=== PATIENT | male | born 1940 | race African-American/Black ===

== ENCOUNTER 2024-08-07 12:09 | Inpatient (IN) | payer OTHER, MEDICARE ==
[~2024-08-07] VITALS: Ht 172.7 cm; Wt 80.5 kg
[~2024-08-07 12:09] MED LIST: ASPI-1497 PO; ATOR40TA70 PO; BICA50TA7 PO; DILT120T13 PO; HYDR25TA PO; METF-1149 PO; TERA2CAP4 PO
[2024-08-07 16:28] LABS: BASOPHILS % 0.5 % (0.0-2.0); EOSINOPHILS % 1.4 % (0.0-5.0); HEMATOCRIT. 35.2 % (42.0-52.0); HEMOGLOBIN. 11.1 g/dL (14.0-18.0); LYMPHOCYTES % 19.6 % (20.0-50.0); MEAN CORPUSCULAR HEMOGLOBIN 26.7 pg (28.0-32.0); MEAN CORPUSCULAR HGB CONC 31.6 g/dL (31.0-37.0); MEAN CORPUSCULAR VOLUME 84.6 fL (80.0-94.0); MEAN PLATELET VOLUME 7.9 fl (7.4-10.4); NEUTROPHILS % 66.5 % (40.0-76.0); PLATELET 329 x1000/uL (130-400); RED BLOOD CELL COUNT 4.16 mill/uL (4.7-6.1); RED CELL DISTRIBUTION WIDTH 14.9 % (11.6-14.6); WHITE BLOOD COUNT 7.8 x1000/uL (4.5-11.0)
[2024-08-07 16:38] LABS: CHLORIDE 113 mEq/L (98-107); POTASSIUM 3.3 mEq/L (3.5-5.1); SODIUM 149 mEq/L (136-145)
[2024-08-07 16:39] LABS: CALCIUM 9.4 mg/dL (8.7-10.4); CARBON DIOXIDE 26 mEq/L (21-32)
[2024-08-07 16:41] LABS: PROTHROMBIN TIME 11.4 sec (9.6-11.0)
[2024-08-07 16:44] LABS: GLUCOSE 87 mg/dL (70-105); UREA NITROGEN BLOOD 13 mg/dL (9-23)
[2024-08-07 16:45] LABS: TROPONIN I HIGH SENSITIVITY 18 ng/L (3.0-53)
[2024-08-07] MEDS: ENOXAPARIN 40MG/0.4ML SYR SUBCUT SCH (20:30)
[2024-08-07] MEDS: DEXT 5%/0.45% NACL 1000ML 1,000 ML IV SCH (20:30)
[2024-08-07] MEDS ORDERED: HYDROCODONE/ACETAMINOPHEN 5/325MG TABLET PO PRN (20:30)
[2024-08-07] MEDS ORDERED: ACETAMINOPHEN 325MG TABLET PO PRN (20:30)
[2024-08-07] MEDS ORDERED: ONDANSETRON HCL 4MG/2ML INJ IV PRN (20:30)
[2024-08-07] MEDS ORDERED: MAGNESIUM/ALUMINUM HYDROXIDE/SIMETHICONE 30ML UDC PO PRN (20:30)
[2024-08-07] MEDS ORDERED: IPRATROPIUM/ALBUTEROL 0.5-3(2.5)MG/3ML NEB NEB PRN (20:30)
[2024-08-07 20:43] LABS: TROPONIN I HIGH SENSITIVITY 18 ng/L (3.0-53)
[2024-08-08] MEDS: PANTOPRAZOLE SODIUM 40 MG/VIAL IV SCH (09:31)
[2024-08-08 12:50] VITALS: BP 180/79; PULSE 56; RESP 18; TEMP 36.8628
[2024-08-08] MEDS: CLONIDINE 0.1MG TABLET PO PRN (13:15)
[2024-08-08 16:00] VITALS: BP 150/81; PULSE 59; RESP 18; TEMP 36.9474; O2SAT 98
[2024-08-08 16:55] LABS: BASOPHILS % 0.5 % (0.0-2.0); EOSINOPHILS % 2.4 % (0.0-5.0); HEMATOCRIT. 33.2 % (42.0-52.0); HEMOGLOBIN. 10.7 g/dL (14.0-18.0); LYMPHOCYTES % 18.2 % (20.0-50.0); MEAN CORPUSCULAR HEMOGLOBIN 26.6 pg (28.0-32.0); MEAN CORPUSCULAR HGB CONC 32.1 g/dL (31.0-37.0); MEAN PLATELET VOLUME 8.4 fl (7.4-10.4); MONOCYTES % 11.8 % (2.0-8.0); NEUTROPHILS % 67.1 % (40.0-76.0); PLATELET 310 x1000/uL (130-400); RED CELL DISTRIBUTION WIDTH 14.5 % (11.6-14.6); WHITE BLOOD COUNT 6.6 x1000/uL (4.5-11.0)
[2024-08-08 17:08] LABS: CHLORIDE 115 mEq/L (98-107); CREATINE KINASE MB FRACTION 1.7 ng/mL (0.5-3.6); POTASSIUM 3.7 mEq/L (3.5-5.1); SODIUM 146 mEq/L (136-145)
[2024-08-08 17:09] LABS: CALCIUM 9.1 mg/dL (8.7-10.4); CARBON DIOXIDE 24 mEq/L (21-32)
[2024-08-08 17:14] LABS: CREATININE 0.8 mg/dL (0.6-1.3); GLUCOSE 106 mg/dL (70-105); UREA NITROGEN BLOOD 12 mg/dL (9-23)
[2024-08-08 17:16] LABS: AMMONIA 40 uMol/L (<32)
[2024-08-08 17:19] LABS: THYROID STIMULATING HORMONE 0.76 uIU/mL (0.55-4.78); VITAMIN B12 SERUM 232 pg/mL (211-911)
[2024-08-08 20:00] VITALS: BP 128/58; PULSE 65; RESP 20; TEMP 37.503; O2SAT 98
[2024-08-09] VITALS: BP 130/63; PULSE 68; RESP 20; TEMP 37.16964; O2SAT 98
[2024-08-09] MEDS: ASPIRIN 81MG EC TABLET PO SCH (00:06)
[2024-08-09 04:00] VITALS: BP 159/61; PULSE 49; RESP 18; TEMP 36.72516; O2SAT 98
[2024-08-09 06:39] LABS: CARBON DIOXIDE 26 mEq/L (21-32); CHLORIDE 112 mEq/L (98-107); POTASSIUM 4.3 mEq/L (3.5-5.1); SODIUM 146 mEq/L (136-145)
[2024-08-09 06:40] LABS: CALCIUM 9.6 mg/dL (8.7-10.4)
[2024-08-09 06:45] LABS: GLUCOSE 138 mg/dL (70-105); TRIGLYCERIDE 45 mg/dL (0-150); UREA NITROGEN BLOOD 14 mg/dL (9-23)
[2024-08-09 06:46] LABS: CHOLESTEROL 101 mg/dL (<200); LDL CHOLESTEROL 47 mg/dL (5-100)
[2024-08-09 06:47] LABS: HDL CHOLESTEROL 34 mg/dL (>55)
[2024-08-09 06:51] LABS: BASOPHILS % 0.4 % (0.0-2.0); EOSINOPHILS % 1.8 % (0.0-5.0); HEMATOCRIT. 36.7 % (42.0-52.0); HEMOGLOBIN. 11.7 g/dL (14.0-18.0); LYMPHOCYTES % 15.8 % (20.0-50.0); MEAN CORPUSCULAR HEMOGLOBIN 27.2 pg (28.0-32.0); MEAN CORPUSCULAR VOLUME 84.9 fL (80.0-94.0); MEAN PLATELET VOLUME 8.2 fl (7.4-10.4); MONOCYTES % 9.9 % (2.0-8.0); NEUTROPHILS % 72.1 % (40.0-76.0); PLATELET 325 x1000/uL (130-400); RED BLOOD CELL COUNT 4.32 mill/uL (4.7-6.1); WHITE BLOOD COUNT 6.6 x1000/uL (4.5-11.0)
[2024-08-09 08:00] VITALS: BP 142/73; PULSE 61; RESP 18; TEMP 36.6696; O2SAT 98
[2024-08-09] MEDS: BICALUTAMIDE 50 MG TABLET PO SCH (09:00)
[2024-08-09] MEDS: DILTIAZEM HCL 120MG TABLET PO SCH (09:00)
[2024-08-09 12:00] VITALS: BP 138/74; PULSE 64; RESP 18; TEMP 36.89184; O2SAT 97
[2024-08-09 16:00] VITALS: BP 148/70; PULSE 60; RESP 18; TEMP 36.78072; O2SAT 98
[2024-08-09] MEDS ORDERED: NALOXONE HCL 0.4MG/ML VIAL IV PRN (18:00)
[2024-08-09 20:00] VITALS: BP 143/85; PULSE 72; RESP 19; TEMP 36.9474; O2SAT 98
[2024-08-09] MEDS: ATORVASTATIN CALCIUM 40MG TABLET PO SCH (21:00)
[2024-08-09] MEDS: TERAZOSIN HCL 5MG CAPSULE PO SCH (21:00)
[2024-08-10] VITALS: BP 148/73; PULSE 67; RESP 19; TEMP 36.05844; O2SAT 97
[2024-08-10 04:00] VITALS: BP 139/86; PULSE 73; RESP 19; TEMP 36.16956; O2SAT 95
[2024-08-10 07:08] LABS: BASOPHILS % 0.4 % (0.0-2.0); EOSINOPHILS % 2.7 % (0.0-5.0); HEMOGLOBIN. 12.2 g/dL (14.0-18.0); LYMPHOCYTES % 18.5 % (20.0-50.0); MEAN CORPUSCULAR HEMOGLOBIN 27.6 pg (28.0-32.0); MEAN CORPUSCULAR HGB CONC 32.1 g/dL (31.0-37.0); MEAN CORPUSCULAR VOLUME 85.9 fL (80.0-94.0); MEAN PLATELET VOLUME 8.3 fl (7.4-10.4); MONOCYTES % 12.1 % (2.0-8.0); NEUTROPHILS % 66.3 % (40.0-76.0); PLATELET 347 x1000/uL (130-400); RED BLOOD CELL COUNT 4.43 mill/uL (4.7-6.1); RED CELL DISTRIBUTION WIDTH 14.8 % (11.6-14.6); WHITE BLOOD COUNT 7.6 x1000/uL (4.5-11.0)
[2024-08-10 07:28] LABS: CHLORIDE 109 mEq/L (98-107); POTASSIUM 3.6 mEq/L (3.5-5.1); SODIUM 144 mEq/L (136-145)
[2024-08-10 07:29] LABS: CALCIUM 9.5 mg/dL (8.7-10.4); CARBON DIOXIDE 24 mEq/L (21-32)
[2024-08-10 07:34] LABS: CREATININE 0.9 mg/dL (0.6-1.3); GLUCOSE 109 mg/dL (70-105); UREA NITROGEN BLOOD 12 mg/dL (9-23)
[2024-08-10 08:29] VITALS: BP 136/83; PULSE 98; RESP 20; TEMP 36.28068; O2SAT 99
[2024-08-10] MEDS: DILTIAZEM HCL 120MG CAPSULE ER 24HR PO SCH (10:08)
[2024-08-10 12:06] VITALS: BP 104/86; PULSE 89; RESP 20; TEMP 36.44736; O2SAT 99
[2024-08-10 16:16] VITALS: BP 125/79; PULSE 71; RESP 19; TEMP 36.16956
[2024-08-10] MEDS: DONEPEZIL HCL 5MG TABLET PO SCH (18:43)
[2024-08-10 20:00] VITALS: BP 136/79; PULSE 79; RESP 18; TEMP 36.114; O2SAT 98
[2024-08-10] MEDS: TRAZODONE HCL 50MG TABLET PO SCH (21:17)
[2024-08-10] MEDS: QUETIAPINE FUMARATE 25MG TABLET PO SCH (23:14)
[2024-08-11] VITALS: BP 120/72; PULSE 82; RESP 20; TEMP 36.55848; O2SAT 98
[2024-08-11 04:00] VITALS: BP 114/78; PULSE 76; RESP 19; TEMP 36.33624; O2SAT 96
[2024-08-11] MEDS: HALOPERIDOL LACTATE 5MG/ML VIAL IM NR (05:18)
[2024-08-11 08:14] VITALS: BP 131/70; PULSE 102; RESP 19; TEMP 36.16956; O2SAT 99
[2024-08-11 12:09] VITALS: BP 96/62; PULSE 80; RESP 19; TEMP 36.3918; O2SAT 95
[2024-08-11 16:00] VITALS: BP 100/69; PULSE 61; RESP 20; TEMP 36.50292; O2SAT 99
[2024-08-11 20:00] VITALS: BP 132/72; PULSE 82; RESP 19; TEMP 36.44736; O2SAT 98
[2024-08-12] VITALS: BP 132/61; PULSE 60; RESP 18; TEMP 36.61404; O2SAT 98
[2024-08-12 04:00] VITALS: BP 150/69; PULSE 62; RESP 18; TEMP 36.61404; O2SAT 98
[2024-08-12 08:00] VITALS: BP_SYST 175; BP_DIAS 52; BP_DIAS 87; PULSE 64; PULSE 66; RESP 18; TEMP 35.78064; O2SAT 98
[2024-08-12 12:00] VITALS: BP 138/71; PULSE 71; RESP 18; TEMP 36.16956; O2SAT 100
[2024-08-12 16:00] VITALS: BP 168/87; PULSE 85; RESP 20; TEMP 36.00288; O2SAT 100
[2024-08-12 20:00] VITALS: BP 120/63; PULSE 75; RESP 18; TEMP 36.50292; O2SAT 97
[2024-08-13] VITALS (8 sets, daily range): BP systolic 139–168; BP diastolic 63–85; PULSE 54–85; RESP 18–20; TEMP 36.114–36.89184; O2SAT 96–100
[2024-08-13] MEDS: FAMOTIDINE 20MG/2ML VIAL IV SCH (08:53)
[2024-08-13] MEDS: DOCUSATE SODIUM 100MG CAPSULE PO SCH (11:20)
[2024-08-13] MEDS ORDERED: SENNOSIDES 8.6MG TABLET PO PRN (19:00)
[2024-08-14 04:00] VITALS: BP 151/67; PULSE 66; RESP 19; TEMP 36.61404; O2SAT 99
[2024-08-14 08:00] VITALS: BP 160/58; PULSE 59; RESP 18; TEMP 36.3918; O2SAT 95
[2024-08-14 12:00] VITALS: BP 158/88; PULSE 77; RESP 15; TEMP 36.00288; O2SAT 100
[2024-08-14 16:00] VITALS: BP 118/52; PULSE 63; RESP 18; TEMP 36.72516; O2SAT 99
[2024-08-14 19:47] VITALS: BP 134/81; PULSE 77; RESP 19; TEMP 36.50292; O2SAT 98
[2024-08-15 04:00] VITALS: BP 133/77; PULSE 91; RESP 19; TEMP 36.78072; O2SAT 99
[2024-08-15 08:00] VITALS: BP 112/61; PULSE 67; RESP 18; TEMP 35.8362; O2SAT 97
[2024-08-15 12:00] VITALS: BP 153/62; PULSE 78; RESP 18; TEMP 36.16956; O2SAT 99
[2024-08-15 16:00] VITALS: BP 138/54; PULSE 69; RESP 18; TEMP 36.44736; O2SAT 97
[2024-08-15 20:00] VITALS: BP 128/76; PULSE 71; RESP 18; TEMP 36.33624; O2SAT 98
[2024-08-16] VITALS: BP 138/62; PULSE 84; RESP 18; TEMP 36.78072; O2SAT 97
[2024-08-16 04:00] VITALS: BP 134/76; PULSE 89; RESP 19; TEMP 36.61404; O2SAT 99
[2024-08-16 08:00] VITALS: BP 173/67; PULSE 81; RESP 18; TEMP 36.50292; O2SAT 98
[2024-08-16 16:00] VITALS: BP 153/66; PULSE 68; RESP 18; TEMP 36.89184; O2SAT 100
[2024-08-16 20:00] VITALS: BP 130/70; PULSE 84; RESP 20; TEMP 36.44736; O2SAT 97
[2024-08-16] MEDS: HALOPERIDOL LACTATE 5MG/ML VIAL IM NR (22:28)
[2024-08-17 08:00] VITALS: BP_SYST 146; BP_SYST 172; BP_DIAS 68; BP_DIAS 80; PULSE 58; PULSE 60; RESP 18; RESP 19; TEMP 35.89176; O2SAT 98
[2024-08-17 12:00] VITALS: BP 146/68; PULSE 58; RESP 19; TEMP 35.89176; O2SAT 98
[2024-08-17 16:00] VITALS: BP 142/64; PULSE 67; RESP 20; TEMP 36.114; O2SAT 98
[2024-08-17 20:00] VITALS: BP 133/63; PULSE 62; RESP 18; TEMP 36.72516; O2SAT 96
[2024-08-18] VITALS: BP 138/61; PULSE 62; RESP 18; TEMP 36.44736; O2SAT 96
[2024-08-18 04:00] VITALS: BP 116/77; PULSE 69; RESP 18; TEMP 36.22512; O2SAT 99
[2024-08-18 08:00] VITALS: BP 129/65; PULSE 67; RESP 19; TEMP 36.78072; O2SAT 98
[2024-08-18 12:00] VITALS: BP 121/67; PULSE 66; RESP 19; TEMP 36.44736; O2SAT 99
[2024-08-18] MEDS: RISPERIDONE 0.5MG TABLET PO SCH (13:14)
[2024-08-18 16:00] VITALS: BP 126/69; PULSE 66; RESP 20; TEMP 36.3918; O2SAT 100
[2024-08-18 20:00] VITALS: BP 146/65; PULSE 97; RESP 18; TEMP 36.22512; O2SAT 97
[2024-08-19] VITALS: BP 150/66; PULSE 65; RESP 17; TEMP 36.33624; O2SAT 99
[2024-08-19 04:00] VITALS: BP 130/65; PULSE 66; RESP 18; TEMP 36.22512; O2SAT 99
[2024-08-19 08:00] VITALS: BP 157/61; PULSE 60; RESP 18; TEMP 36.61404; O2SAT 95
[2024-08-19 12:00] VITALS: BP 139/60; PULSE 62; RESP 18; TEMP 36.61404; O2SAT 98
[2024-08-19 16:00] VITALS: BP 125/53; PULSE 60; RESP 18; TEMP 36.61404; O2SAT 98
[2024-08-19 20:00] VITALS: BP 126/51; PULSE 64; RESP 18; TEMP 36.78072; O2SAT 97
[2024-08-20] VITALS: BP 131/68; PULSE 61; RESP 18; TEMP 36.89184; O2SAT 99
[2024-08-20 04:00] VITALS: BP 132/71; PULSE 65; RESP 18; TEMP 36.55848; O2SAT 96
[2024-08-20 08:00] VITALS: BP 129/65; PULSE 70; RESP 18; TEMP 36.78072; O2SAT 99
[2024-08-20 12:00] VITALS: BP 126/67; PULSE 72; RESP 19; TEMP 36.6696; O2SAT 99
[2024-08-20 16:00] VITALS: BP 127/65; PULSE 70; RESP 19; TEMP 36.50292; O2SAT 99
[2024-08-20 20:00] VITALS: BP 151/64; PULSE 64; RESP 16; TEMP 36.50292; O2SAT 99
[2024-08-21 04:00] VITALS: BP 132/56; PULSE 75; RESP 16; TEMP 36.6696; O2SAT 98
[2024-08-21 08:00] VITALS: BP 118/71; PULSE 55; RESP 18; TEMP 36.61404; O2SAT 99
[2024-08-21 12:00] VITALS: BP 140/52; PULSE 60; RESP 19; TEMP 36.61404; O2SAT 100
[2024-08-21 16:00] VITALS: BP 142/49; PULSE 64; RESP 19; TEMP 36.3918; O2SAT 100
[2024-08-21 20:00] VITALS: BP 142/68; PULSE 75; RESP 18; TEMP 36.61404; O2SAT 99
[2024-08-21] MEDS ORDERED: RISPERIDONE 1MG TABLET PO SCH (21:00)
[2024-08-21] MEDS: RISPERIDONE 0.5MG TABLET PO SCH (21:40)
[2024-08-22] MEDS: HALOPERIDOL LACTATE 5MG/ML VIAL IM NR (02:10)
[2024-08-22 04:00] VITALS: BP 143/69; PULSE 60; RESP 19; TEMP 36.55848; O2SAT 100
[2024-08-22 08:00] VITALS: BP 146/57; PULSE 66; RESP 19; TEMP 36.7; O2SAT 99
[2024-08-22 12:00] VITALS: BP 159/71; PULSE 67; RESP 20; TEMP 36.1; O2SAT 97
[2024-08-22 16:00] VITALS: BP 148/66; PULSE 64; RESP 20; TEMP 35.9; O2SAT 97
[2024-08-22 20:00] VITALS: BP 114/63; PULSE 73; RESP 18; TEMP 36.5; O2SAT 97
[2024-08-23 04:00] VITALS: BP 139/60; PULSE 64; RESP 18; TEMP 36.4; O2SAT 100
[2024-08-23 08:00] VITALS: BP 134/68; RESP 64; TEMP 34; O2SAT 98
[2024-08-23 12:00] VITALS: BP 146/66; PULSE 64; RESP 19; TEMP 35.9
[2024-08-23 16:00] VITALS: BP 158/68; PULSE 69; RESP 20; TEMP 36; O2SAT 99
[2024-08-23 20:00] VITALS: BP 121/67; PULSE 84; RESP 18; TEMP 36.4; O2SAT 100
[2024-08-24] VITALS: BP 138/69; PULSE 63; RESP 18; TEMP 36.2; O2SAT 100
[2024-08-24 04:00] VITALS: BP 140/70; PULSE 69; RESP 18; TEMP 36; O2SAT 100
[2024-08-24 08:00] VITALS: BP 147/75; PULSE 80; RESP 18; TEMP 35.8; O2SAT 100
[2024-08-24] MEDS: HALOPERIDOL LACTATE 5MG/ML VIAL IM NR (08:00)
[2024-08-24 12:00] VITALS: BP 159/75; PULSE 87; RESP 19; TEMP 35.9; O2SAT 95
[2024-08-24 15:25] LABS: CLARITY URINE CLEAR (CLEAR); COLOR URINE YELLOW (YELLOW); GLUCOSE URINE NEGATIVE (NEGATIVE); KETONES URINE NEGATIVE (NEGATIVE); LEUKOCYTE ESTERASE URINE NEGATIVE (NEGATIVE); NITRITE URINE NEGATIVE (NEGATIVE); OCCULT BLOOD URINE NEGATIVE (NEGATIVE); PROTEIN URINE NEGATIVE (NEGATIVE); UROBILINOGEN URINE 0.2 E.U./dL (0.2-1.0)
[2024-08-24 16:00] VITALS: BP 117/66; PULSE 83; RESP 19; TEMP 36.4; O2SAT 97
[2024-08-24 20:00] VITALS: BP 121/54; PULSE 73; RESP 18; TEMP 36.3; O2SAT 96
[2024-08-24] MEDS: MEMANTINE HCL 5MG TABLET PO SCH (21:12)
[2024-08-25] VITALS: BP 154/56; PULSE 66; RESP 19; TEMP 36.3; O2SAT 98
[2024-08-25 04:00] VITALS: BP 132/62; PULSE 68; RESP 19; TEMP 36.4; O2SAT 97
[2024-08-25 08:00] VITALS: BP 102/54; PULSE 58; RESP 17; TEMP 36.2; O2SAT 99
[2024-08-25 12:00] VITALS: BP 157/61; PULSE 59; RESP 18; TEMP 36.2; O2SAT 98
[2024-08-25 13:43] VITALS: BP 110/54; PULSE 95; TEMP 97; O2SAT 97
[2024-08-25] MEDS ORDERED: TRAZ-251 PO (15:50)
[2024-08-25] MEDS ORDERED: RISP05 PO (15:50)
[2024-08-25] MEDS ORDERED: DONE5TAB7 PO (15:50)
[2024-08-25] MEDS ORDERED: QUET25TA PO (15:50)
[2024-08-25 16:00] VITALS: BP 136/59; PULSE 67; RESP 18; TEMP 36.3; O2SAT 98
== END 2024-08-25 16:47 | disposition home health service (06) | DRG 72 ==
LOC: ER 12:09 → MICUSO 19:57 → EDBEDREQ 19:59 → EDBEDREQSVC 19:59 → 7WST 08-08 12:42 → 4WST 08-11 11:48 → 8EST 08-16 13:49
PROVIDERS: ADMIT Internal Medicine; ATTEND Internal Medicine
DX: G93.41 Metabolic encephalopathy (principal); E11.9 Type 2 diabetes mellitus without complications; F02.80 Dementia in other diseases classified elsewhere, unspecified severity, without behavioral disturbance, psychotic disturbance, mood disturbance, and anxiety; E78.5 Hyperlipidemia, unspecified; G30.9 Alzheimer's disease, unspecified; I10 Essential (primary) hypertension; Z79.84 Long term (current) use of oral hypoglycemic drugs; Z79.82 Long term (current) use of aspirin; Z79.899 Other long term (current) drug therapy
CPT/HCPCS: 36415; 80048; 80061; 81003; 82140; 82550; 82553; 82607; 82962; 83036; 83880; 84443; 84484; 85025; 93005; 93970; 97162; 99285; A4606; A4663; J1630; J1650; J2470; J3490